=== PATIENT | female | born 1990 | race Caucasian/White ===

== ENCOUNTER 2020-11-24 05:34 | Day surgery (SDC) | payer BC, OTHER ==
[~2020-11-24] VITALS: Ht 160 cm; Wt 140.9 kg
--- NOTE | ~2020-11-24 | OP ---
PATIENT NAME: DIANE LAM MEDICAL RECORD: [id number] :89 LOCATION:[facility] ADMISSION DATE: SURGEON: LESLEY PARSONS MD DATE OF OPERATION: 11/24/2020 PREOPERATIVE DIAGNOSES: Nasal obstruction, septal deviation, turbinate hypertrophy, massive adenotonsillar hypertrophy. PROCEDURE: Tonsillectomy, adenoidectomy, septoplasty and bilateral inferior turbinate reduction. SURGEON: Lesley Parsons MD ANESTHESIA: General orotracheal. BLOOD LOSS: 15 mL. SPECIMENS: Right and left tonsil. COMPLICATIONS: None. DISPOSITION: Recovery, stable. PACKING: Castaneda splints bilaterally. DESCRIPTION OF PROCEDURE: She was brought to the operating room and placed in supine position, sedated and intubated by anesthesia. The eyes were taped. Table was turned 90 degrees. Head drape was applied. Her nose was examined using a headlight. The nasal speculum, the anterior septum, floor of the nose and inferior turbinates were injected with a total of 1.5 mL of 1% lidocaine with 1:100,000 epinephrine with 1-1/2 inch 27-gauge needle. Afrin pledgets were placed in each side of the nose. Bambi-Leonid mouth gag was carefully inserted and elevated on a towel on her chest. The palate was examined and palpated as normal. The tonsils were just massive. The right tonsil was grasped with a straight Allis clamp. Spatula tip cautery on a setting of 9 was used to dissect out the tonsil along its capsule, preserving the anterior and posterior tonsillar pillar. The left tonsil was removed in the same fashion. Then, the pharynx was irrigated. Both tonsils were agitated. Suction cautery on a setting of 20 was used to control minimal oozing. With that completed all the Afrin pledgets were removed from the nose. A red rubber catheter was placed through the right side of the nose into the pharynx and grasped with tonsil clamp to retract the soft palate. Using the mirror, the nasopharynx was examined. Suction cautery on a setting of 35 was used to ablate and suction the adenoid pad with no significant bleeding, which was larger than expected for her age and then the posterior aspect of the inferior turbinate was cauterized as well. The red rubber catheter was let down and removed. Then, the Bambi-Leonid mouth gag was let down and removed. She was repositioned and the table was turned 90 degrees. Then, the nose was again examined. A left-sided Yeyo incision was made. Ipsilateral mucoperichondrial flap was elevated. A caudal was used to remove cartilaginous fold that went off into the left side of nose. She really had an unusual, kind of tri-fold septal deviation, it was not just a spur, but folded up like a corner in there. Bony cartilaginous junction was disarticulated. A posterior mucoperichondrial flap was elevated. Scissors were used to remove a bony spur inferiorly and allowed the septum to fall to the midline posteriorly. Once that cut was made superiorly and then a relaxing OPERATIVE REPORT [id number] DIANE LAM incision was made in the cartilage, the inferior redundant portion of the cartilage that was rolled up was removed, so the septum could fall back over the maxillary spine with relaxing incisions made that fit nicely. Then, the incision was closed with interrupted 3-0 chromic. Then, both inferior turbinates were medialized with a freer. A Gruenwald was used to take down the inferior redundant portion. Suction cautery on a setting of 25 was used to stop any bleeding. They both outfractured with a [place] elevator. Nasopharynx was suctioned. Good airway on both sides. Septum was nice and straight. Castaneda splints with mupirocin ointment were placed bilaterally and sutured through the anterior membranous septum with a 2-0 Prolene and a Jeremias needle. She was awakened, extubated, and transported to recovery in good condition. No complications. TRANSINT:[id number] Voice Confirmation ID: [id number] DOCUMENT ID: [id number] LESLEY PARSONS MD CC: [id number] DICTATION DATE: 11/24/20 1029 CARE SUPPORT REPRESENTATIVE: 11/24/20 1104 [facility] [address] [place] [address]
[~2020-11-24 05:34] MED LIST: BIRHT CONTROL; NEFAZODONE HCL150 MG; OMEPRAZOLE20 M1 PO; PROAIR HFA8.5 G1
[2020-11-24 06:21] LABS: BASOPHILS 0.9 % (0-2); EOSINOPHILS 4.1 % (0-7); HEMATOCRIT 40.1 % (36.0-48.0); HEMOGLOBIN 13.6 g/dL (12-16); MCHC 33.9 g/dL (31.0-37.0); MCV 85.3 fL (80.0-100.0); MEAN PLATELET VOLUME 9.9 fL (7.4-10.4); MONOCYTES 5.9 % (2-11); NEUTROPHILS 45.1 % (40-80); PLATELET COUNT 196 10x3/uL (130-400); RDW 13.3 % (11.5-14.5); WBC 7.7 10x3/uL (4.8-10.8)
[2020-11-24 07:06] VITALS: BP 105/58; Ht 160 cm; Wt 140.9 kg
[2020-11-24 07:10] LABS: HCG URINE NEGATIVE (NEGATIVE)
--- NOTE | 2020-11-24 08:26 | NUR ---
DR COLLIER NOTIFIED AND REVIEWED PT'S BEHAVIOR AND ASSESSMENT. PT IS LOW RISK. RESOURCES GIVEN AND SHE VERBALIZES UNDERSTANDING.
--- NOTE | 2020-11-24 10:22 | HP ---
PATIENT: DIANE FUENTES MEDICAL RECORD: [id number] ACCOUNT: [id number] LOCATION:[facility] : 90 ADMISSION DATE: 11/24/20 PCP: LESLEY SHIPMAN MD HISTORY AND PHYSICAL EXAMINATION HISTORY OF PRESENT ILLNESS: Ms. Fuentes is 30. She has significant obstructive tonsillar hypertrophy symptoms, nasal obstruction refractory to medical management, difficulty breathing at night. Normal CT of the sinuses and she is being admitted for tonsillectomy, adenoidectomy as well as septoplasty and bilateral inferior turbinate reduction. PAST MEDICAL HISTORY: Includes reactive airway disease and reflux. PAST SURGICAL HISTORY: Includes a spinal surgery for a bulging disk in 2019, in 2017, appendectomy in 2015. CURRENT MEDICATIONS: ProAir, fluoxetine, omeprazole, Microgestin. ALLERGIES: MORPHINE. PHYSICAL EXAMINATION: GENERAL: She is overweight. FACE: Normal, symmetric. EYES: Sclerae and conjunctivae are normal. EARS: Canals and TMs are normal. NOSE: Right septal deviation, large inferior turbinates. No masses or polyps. ORAL CAVITY AND OROPHARYNX: 4+ massive kissing tonsils. Palate looks normal, but the uvula appears to be behind the tonsils. NECK: No masses, no adenopathy. CHEST: Clear. CARDIOVASCULAR: Regular rate and rhythm, no murmur. EXTREMITIES: Normal. IMPRESSION: Obstructive adenotonsillar hypertrophy, sleep apnea, nasal obstruction refractory to medical management with septal deviation and turbinate hypertrophy. PLAN: Tonsillectomy, adenoidectomy, septoplasty and bilateral inferior turbinate reduction. TRANSINT:[id number] Voice Confirmation ID: [id number] DOCUMENT ID: [id number] LESLEY SHIPMAN MD at 1022 CC: [id number] DICTATION DATE: 11/20/2024 INVENTORY SPECIALIST: 11/20/20 0939 REG [facility] [address] [place] [address]
--- NOTE | 2020-11-24 12:33 | NUR ---
1230 - PATIENT DISCHARGED VIA WHEELCHAIR TO PRIVATE CAR.
== END 2020-11-24 12:30 | disposition home or self-care (01) ==
LOC: D.OPS 05:34
PROVIDERS: Anesthesiology; ATTEND Otolaryngology
DX: J34.89 Other specified disorders of nose and nasal sinuses (principal); J34.2 Deviated nasal septum; J34.3 Hypertrophy of nasal turbinates; J35.3 Hypertrophy of tonsils with hypertrophy of adenoids; J45.909 Unspecified asthma, uncomplicated

== ENCOUNTER 2020-12-01 10:30 | Outpatient (CLI) | payer BC, OTHER ==
[~2020-12-01] VITALS: Ht 160 cm; Wt 143.2 kg
[2020-12-01 10:46] VITALS: BP 128/85; Ht 160 cm; Wt 143.2 kg
[2020-12-01 11:22] LABS: BASOPHILS 0.7 % (0-2); HEMATOCRIT 38.1 % (36.0-48.0); HEMOGLOBIN 12.9 g/dL (12-16); LYMPHOCYTES 26.3 % (15-50); MCH 28.9 pg (26.0-34.0); MCHC 33.9 g/dL (31.0-37.0); MCV 85.3 fL (80.0-100.0); MEAN PLATELET VOLUME 9.1 fL (7.4-10.4); MONOCYTES 4.9 % (2-11); NEUTROPHILS 64.1 % (40-80); PLATELET COUNT 199 10x3/uL (130-400); RBC 4.46 10x6/uL (4.00-5.40); RDW 13.3 % (11.5-14.5); WBC 7.6 10x3/uL (4.8-10.8)
[2020-12-01 11:30] LABS: CALC OSMOLALITY 277 mosm/kg (275-300); CALCIUM 8.6 mg/dL (8.5-10.1); CARBON DIOXIDE 25.9 mmol/L (21.0-32.0); CHLORIDE - SERUM 104 mmol/L (98-107); CREATININE - SERUM 0.8 mg/dL (0.6-1.3); GLUCOSE 95 mg/dL (74-106); POTASSIUM - SERUM 3.9 mmol/L (3.5-5.1); SODIUM 139 mmol/L (136-145); UREA NITROGEN 13 mg/dL (7-18); eGFR NON AFRICAN AMERICAN 89 mL/min (90-120)
[2020-12-01 11:36] LABS: ALBUMIN 3.3 g/dL (3.4-5.0); ALKALINE PHOSPHATASE 90 U/L (30-120); ALT (SGPT) 25 U/L (10-68); BILIRUBIN - TOTAL 0.22 mg/dL (0.2-1.3); PROTEIN - SERUM 7.6 g/dL (6.4-8.2)
[2020-12-01 11:45] LABS: APTT 25.7 SECONDS (22.8-39.4); INR 1.07 (0.85-1.17); PROTIME 12.9 SECONDS (11.6-15.0)
--- NOTE | 2020-12-01 15:55 | NUR ---
1415 - IV D/C'D WITH TIP INTACT
--- NOTE | 2020-12-01 15:56 | NUR ---
1435 - PATIENT DISCHARGED VIA WHEELCHAIR TO PRIVATE CAR.
--- NOTE | 2020-12-02 12:47 | HP ---
PATIENT: DIANE FUENTES MEDICAL RECORD: [id number] ACCOUNT: [id number] LOCATION:[facility] : 90 ADMISSION DATE: 12/01/20 PCP: No PCP HISTORY AND PHYSICAL EXAMINATION HISTORY OF PRESENT ILLNESS: Ms. Fuentes is a 30-year-old female 1-week status post tonsillectomy and nasal surgery, showed evidence of bleeding from throat this morning, coughing up, spitting up. She presented to the Emergency Room with a clot in the left tonsillar fossa and some bleeding. PAST MEDICAL HISTORY: Taken off the chart. PHYSICAL EXAMINATION: GENERAL: She is healthy appearing. She is in no distress. FACE: Normal, symmetric. EYES: Sclerae and conjunctivae are normal. EARS: Canals and TMs are normal. NOSE: She had Castaneda splints bilaterally. ORAL CAVITY AND OROPHARYNX: Large clot in the right tonsillar fossa. NECK: Normal. CHEST: Clear. CARDIOVASCULAR: Regular rate and rhythm, no murmur. IMPRESSION: Post-tonsillectomy hemorrhage. PLAN: OR for control of post-tonsillectomy hemorrhage. TRANSINT:[id number] Voice Confirmation ID: [id number] DOCUMENT ID: [id number] LESLEY SHIPMAN MD at 1247 CC: [id number] DICTATION DATE: 12/01/20 124 UTILITY ARBORIST: 12/01/20 1326 DEP CLI 12/01/20 [facility] [address] [place] [address]
--- NOTE | 2020-12-02 12:47 | OP ---
PATIENT NAME: DIANE LAM MEDICAL RECORD: [id number] :89 LOCATION:[facility] ADMISSION DATE: SURGEON: LESLEY PARSONS MD DATE OF OPERATION: 12/01/2020 PREOPERATIVE DIAGNOSIS: Post-tonsillectomy hemorrhage. POSTOPERATIVE DIAGNOSIS: Post-tonsillectomy hemorrhage. PROCEDURE: Control of post-tonsillectomy hemorrhage. SURGEON: Lesley Parsons MD ANESTHESIA: General orotracheal. ESTIMATED BLOOD LOSS: 20 cc. COMPLICATIONS: None. DISPOSITION: Recovery, stable. DESCRIPTION OF PROCEDURE: She was brought to the operating room and placed in supine position, sedated and intubated by anesthesia. The eyes were taped. Table was turned 90 degrees. Head drape was applied. She was positioned for tonsillectomy. Using a headlight, a Bambi-Leonid mouth gag was carefully inserted and elevated on a towel on his chest. The left tonsil was clean. The right side had a clot. I removed the clot. There was some bleeding from some diffuse granulation and a more profuse bleeding from the anterior aspect of the inferior tonsillar fossa there. Suction cautery on a setting of 20 was used to control all that bleeding. An NG tube was passed through the mouth into her stomach 3 separate times to evacuate stomach contents some blood and not a tremendous amount was evacuated. The tonsil fossa was irrigated with warm saline agitated with a Yankauer suction carefully inspected. The tonsil gag was let down and lifted up again and there was no bleeding. The area was clean and dry. The suture from the Castaneda splints was cut and both Castaneda splints were removed. The nasal was suctioned out as well. Good airway. Septum is intact and straight. She was awakened, extubated, and transported to recovery in good condition. No complications. TRANSINT:[id number] Voice Confirmation ID: [id number] DOCUMENT ID: [id number] LESELY PARSONS MD at 1247 CC: [id number] DICTATION DATE: 12/01/20 1249 POULTRYMAN: 12/01/20 2133 DEP CLI 12/01/20 [place] [id number]
== END 2020-12-01 14:35 | disposition home or self-care (01) ==
LOC: D.OPS 10:30 → D.ER 10:30 → EDSTATUS 12:00 → D.OPS 14:35
PROVIDERS: Emergency Medicine; ATTEND Otolaryngology
DX: J95.830 Postprocedural hemorrhage of a respiratory system organ or structure following a respiratory system procedure (principal)